=== PATIENT | male | born 1965 | race Caucasian/White ===

== ENCOUNTER 2017-07-18 10:40 | Inpatient (IN) ==
--- NOTE | 2017-07-18 10:28 | Anesthesia Evaluation PreOp ---
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 Any Significant HX Other Medical History: Other (mood) Anesthesia History: No Prior Anesthetic Complications, Past Anesthesia Alcohol Use: none Drug use: none Medications and Allergies Bupropion HCl [Wellbutrin Xl] 300 mg PO DAILY 07/18/17 [History] Lisinopril/Hydrochlorothiazide [Zestoretic 20-25 mg Tablet] 1 tab PO DAILY 07/18 [History] Potassium Chloride [Klor-Con 10] 10 meq PO DAILY 07/18/17 [History] 3 Allergy/AdvReac Type Severity Reaction Status Date / Time No Known Allergies Allergy Verified 07/18/17 11:25 - Meds/Allergy Pre-op Review Medications Reviewed: Yes Allergies Reviewed: Yes Beta Blockers on Current Med List: No Anesthesia Results - Labs Laboratory Tests 07/06/17 07/06/17 09:29 09:29 WBC 9.1 Hgb 14.7 Hct 41.5 Plt Count 267 Sodium 145 Potassium 3.3 L BUN 16 Creatinine 1.11 - Imaging EKG: report reviewed (07/06/2017 SINUS BRADYCARDIA BORDERLINE LEFT AXIS DEVIATION POSSIBLE RIGHT VENTRICULAR CONDUCTION DELAY MINIMAL VOLTAGE CRITERIA FOR LVH, CONSIDER NORMAL VARIANT) Anesthesia Exam O2 Sat Height 1.83 m Height 1.83 m Height 1.83 m Weight 92.533 kg Weight 92.533 kg Weight 92.533 kg O2 Sat by Pulse Oximetry 98 Vital Signs Temp Pulse Resp BP Pulse Ox 97.3 F L 64 18 193/103 98 07/18/17 11:15 07/18/17 11:15 07/18/17 11:15 07/18/17 11:15 07/18/17 11:15 Height: 6' Weight: 204 lbs NPO (# of Hours): 8 Pain Scale: 0 Pain Scale Used: Numeric (1 - 10) - HEENT Pupil (Motor): EOMI Mallampati: II Teeth: Normal Denture Type: Upper: Complete Oral Opening: Greater than 3 - FISHER SWORDFISH LOC: Oriented FISHER SWORDFISH Motor: Normal RUE, Normal LUE, Normal RLE, Normal LLE, Normal Face FISHER SWORDFISH Sensory: Normal: RUE, LUE, RLE, LLE, Face - Cardiac Rhythm: Regular Murmur: None - Pulmonary Breath Sounds: bilateral Clear Respiratory Effort: Symmetrical Anesthesia Assess/Plan ASA Score: 2 Modified [place] Scale for Level of Consciousness: Cooperative, oriented, and tranquil Anesthetic Plan: General Monitoring Plan: Standard Monitors Recovery Plan: PACU
[2017-07-18] MEDS ORDERED: CeFAZolin Pre 2,000 MG/100 ML 2,000 MG/100 ML BAG IVPB ONE (11:09)
[2017-07-18] MEDS ORDERED: Plasma-Lyte A (PH 7.4) 1,000 ML IVC SCH (11:15)
[2017-07-18] MEDS ORDERED: diazePAM 5 MG TABLET PO ONE (11:56)
[2017-07-18] MEDS ORDERED: *HR* FentaNYL (PF) 100 MCG/2 ML VIAL ONE (12:12)
[2017-07-18] MEDS ORDERED: Ondansetron 4 MG/2 ML VIAL ONE (12:12)
[2017-07-18] MEDS ORDERED: *HR* Rocuronium Bromide 50 MG/5 ML VIAL ONE ×2 (12:12→14:46)
[2017-07-18] MEDS ORDERED: *HR* Midazolam HCl 2 MG/2 ML VIAL ONE (12:12)
[2017-07-18] MEDS ORDERED: *HR* Propofol 200 MG/20 ML VIAL IVP ONE (12:12)
[2017-07-18] MEDS ORDERED: Lidocaine -MPF 2% 2 ML VIAL ONE (12:12)
--- NOTE | 2017-07-18 12:45 | History & Physical Report ---
Date of Encounter: 07/18/17 Time of Encounter: 12:44 24 Hour HP Update - Instructions Instructions: If the History and Physical is less than 30 days old and was completed prior to A.M. admission and or procedure and has NOT been updated on calendar day of procedure please complete this update prior to performing procedure. - Update Patient reports changes in Medical Condition: No Changes in examination, assessment, or condition: No Changes in Medication: No Preop tests/diagnostics Reviewed: Yes Surgery Remains Indicated: Yes Consent for Planned Operative Procedure(s) Verified: Yes - Pre-Operative Checklist Preoperative Checklist Indicated: Yes Prophylactic Antibiotic Ordered: Yes Home Medications Include Beta Brian: No Is VTE Prophylaxis Indicated?: Yes
[2017-07-18] MEDS ORDERED: Bupivacaine-MPF 0.25% 10 ML VIAL ONE (13:12)
[2017-07-18] MEDS ORDERED: Ringers Solution, Lactated 1,000 ML IVC SCH (13:50)
[2017-07-18] MEDS ORDERED: *HR* HYDROmorphone (PF) 1 MG/ML SYRINGE IVP PRN ×2 (14:32→18:57)
[2017-07-18] MEDS ORDERED: *HR* Meperidine 25 MG/ML SYRINGE IVP PRN (14:32)
[2017-07-18] MEDS ORDERED: *HR* Labetalol 20 MG/4 ML SYRINGE IVP PRN (14:32)
[2017-07-18] MEDS ORDERED: *HR* Promethazine 25 MG/ML VIAL IVP PRN (14:32)
[2017-07-18] MEDS ORDERED: Lidocaine -MPF 4% 5 ML AMPUL ONE (14:46)
[2017-07-18] MEDS ORDERED: Dexamethasone 4 MG/ML VIAL ONE (14:47)
[2017-07-18] MEDS ORDERED: *HR* HYDROmorphone 2 MG/ML SYRINGE ONE (17:00)
--- NOTE | 2017-07-18 17:32 | Operative Note ---
Date of procedure: 07/18/17 Pre-op diagnosis: Prostate cancer Post-op diagnosis: same Procedure: Robot-assisted radical prostatectomy Implants: 22 Macanese Farley catheter. 19 Macanese Michael drain. Complications: None. Anesthesia: BEN Surgeon: Gordo Howard Estimated blood loss (cc): 150 Specimen: Prostate Condition: stable Disposition: PACU Procedure in Detail: INDICATIONS FOR PROCEDURE: Mr. Tang is a 51 year-old male with history of elevated PSA. He was found on prostate needle biopsy to have Ania 3+3 prostate cancer at the left apex, right apex, and left mid. He is now presenting for robotic assisted prostatectomy. He was informed of the risks of the procedure including but not limited to bleeding, infection, injury to other structures, need for further procedures, lymphocele, urinary incontinence, urine leak, erectile dysfunction, bladder neck contracture, rectal injury, and the risk of anesthesia. He is willing to proceed. PROCEDURE: After informed consent was obtained, the patient was taken to the operating room, placed supine on the table. He was given IV antibiotics for antibiotic coverage. He had SHEYLA's and SCD's placed on the lower extremities for DVT prophylaxis. Induction of general anesthesia was performed. The arms were tucked and he was placed in lithotomy position. He was secured to the OR table with padding. A 16 Macanese Farley catheter was placed. A 10mm incision was made just infraumbilically. The Veress needle was introduced. The water drop test passed. Pneumoperitoneum was initiated with low pressures initially. The abomen was insufflated. I then placed a 12mm camera port through this incision using the visual obturator and the 8 mm robotic camera. Once the trocar was in place, the camera for the robot was placed in the field and remaining trocars were placed. Robotic ports were placed x 2 on the right side. We placed another robotic port to the left of the umbilicus. We also placed a 12mm port in the left lower quadrant. Once all trocars were in place, the robot was docked to the patient and the monopolar scissors were placed on the right robotic arm. The bipolar [place] was in the left robotic arm and the Prograsp in the 4th arm. We initially retracted the bowel with the 4th arm. The medial umbilical ligaments were cauterized and the bladder was taken down off the anterior abdominal wall using electrocautery. The bladder was then grasped with a 4th arm and retracted cephalad. We then swept the periprostatic fat off the prostate as well as the pelvic sidewall. We then incised the endopelvic fascia on both sides and carried the incision up to the prostatic apex, sweeping the levator fibers off of the prostate. We then turned our attention to the bladder neck which was incised with the monopolar cautery until the catheter was visualized at the bladder neck. The balloon of the catheter was deflated. It was brought out of the bladder and retracted anteriorly using the fourth arm. The posterior bladder neck was then opened using the cautery until the space between the prostate and the bladder neck was visualized. The posterior aspect of the prostate was dissected down carefully using electrocautery. The posterior bladder neck to get thinned out and required reconstruction prior to the anastomosis. The vas deferens and seminal vesicals were encountered. The vas deferens were cauterize and divided. We pulled the seminal vesicles up into the field to help retract the prostate in cephalad direction. Denonvillier's fascia was dissected off the prostate posteriorly. We then began releasing the lateral prostatic fascia, first on the left side. The neurovascular bundles with minimal use of cautery to do a good nerve sparing approach. The pedicles were carefully ligated using hemo-lock clips. Attention was then turned to the right side. The right neurovascular bundle was released sharply. The pedicles were taken down using hemo-lock clips. Once both neurovascular bundles were released, the posterior attachments were released sharply between the prostate and the rectum. We then used the 4th arm to place the prostate on stretch in cephalad direction. The puboprostatic ligaments were cut sharply. I then divided the dorsal venous complex sharply. The urethra was eventually encountered. The dorsal vein was oversewed using an 0 Vicryl suture in a running fashion. With cold scissors I cut across the urethra until the catheter was visualized. The catheter was removed and the posterior urethra was transected. The prostate was then placed in an Endo Catch bag. The bladder neck was then reconstructed in a tennis racquet fashion using a 3-0 Vicryl in a running fashion. The bladder neck was adequately patent. A stitch was placed posterior to the bladder and posterior to the urethra using a 0 Vicryl. This took some tension off the bladder neck in order to achieve a good anastomosis. The urethral vesicle anastomosis was then performed with a 3-0 V-Cody suture in running fashion starting at 6 o'clock position. With two sutures tied together we then ran the right side up about long-term. The left side was then run around until the bladder was reanastamosed to the urethra. The final 20 Macanese catheter was placed into the bladder and balloon filled with 15 mL of sterile water. The bladder was irrigated. No leak was identified. A 19 Macanese Michael drain was placed through the trocar down into the pelvis. The trocar was removed and drain sewn in place with a suture. The robot was then undocked from the patient. I was able to place my finger from the camera wound across the abdomen to grasp the Endocatch bag and bring the suture to the umbilical wound. After extending the incision slightly with the electrocautery the EndoCatch bag was then removed from the camera port. The abdominal fascia was then closed in running fashion with 0 Vicryl suture. All incisions were instilled with 0.25 % Marcaine. The remaining trocars were removed under direct vision and all incisions were then closed with 4-0 Monocryl in subcuticular fashion. The patient was then awakened from general anesthesia and brought to the recovery room in good condition. All sponge, needle, and instrument counts were correct.
--- NOTE | 2017-07-18 18:30 | Anesthesia Evaluation Post Op ---
Date of Encounter: 07/18/17 Time of Encounter: 18:29 - Vital Signs Vital Signs: Vital Signs/O2 Sat, Most Current Temp Pulse Resp BP Pulse Ox 98.4 F 80 16 150/97 94 07/18/17 18:00 07/18/17 18:20 07/18/17 18:20 07/18/17 18:20 07/18/17 18:20 - Lungs Lungs: Clear Ascult./Percussion - Airway Airway: Non-obstructed - Cardiovascular Regular Rate - Mental Status Mental Status: Asleep with brisk response to light stimulation - Pain Pain Scale: 0 Pain Scale used: Numeric (1 - 10) - Nausea Vomiting Nausea Vomiting: Not Present - Hydration Hydration: NPO, Farley catheter - Discharge PostOp Status: Transfer Patient to floor
[2017-07-18] MEDS ORDERED: Naloxone 0.4 MG/ML INJ IVP PRN (18:57)
[2017-07-18] MEDS ORDERED: *HR* OxyCODONE Immed Rel 5 MG TABLET PO PRN (18:57)
[2017-07-18 19:41] LABS: BUN/Creatinine Ratio 14 (6-26); Blood Urea Nitrogen 15 mg/dL (8-26); Calcium 8.6 mg/dL (8.6-10.8); Carbon Dioxide 24 mEq/L (19-29); Chloride 104 mEq/L (98-109); Glucose 211 mg/dL (70-99); Osmolality,Calculated 299 (280-300); Sodium 141 mEq/L (136-145); eGFR For African Americans > 60 (> 60); eGFR For Non-African Americans > 60 (> 60)
[2017-07-18] MEDS: 0.9 % Sodium Chloride 1,000 ML IVC SCH (19:47)
[2017-07-18] MEDS: *HR* Heparin 5,000 UNIT/ML VIAL SQ SCH (19:48)
[2017-07-18] MEDS: Ketorolac 30 MG/ML VIAL IVP SCH ×2 (19:49→23:31)
[2017-07-18] MEDS: Ondansetron 4 MG/2 ML VIAL IVP PRN (23:30)
[2017-07-19] MEDS: ceFAZolin 2,000 MG in D5% in Water 100 ML IVPB SCH ×3 (00:05→17:33)
[2017-07-19 04:49] LABS: Basophils % 0.1 %; Hematocrit 33.7 % (37.5-50.1); Hemoglobin 11.5 g/dL (12.9-16.9); Immature Granulocytes % 0.5 % (0-4); Lymphocytes # 1.3 K/mcL (0.6-4.6); Lymphocytes % 7.4 %; Mean Corpuscular HGB Conc 34.1 g/dL (31.6-35.5); Mean Corpuscular Hemoglobin 28.4 pg (28.0-33.3); Mean Corpuscular Volume 83.2 fL (83.0-100.0); Mean Platelet Volume 10.2 fL (9.4-12.4); Monocytes # 1.4 K/mcL (0.0-1.3); Monocytes % 8.1 %; Neutrophils # 14.1 K/mcL (1.6-8.9); Platelet Count 336 K/mcL (140-400); Red Blood Count 4.05 M/mcL (4.19-5.50); Red Cell Distribution Width 13.5 % (11.5-14.5); Segmented Neutrophils % 83.9 %
[2017-07-19 04:57] LABS: Calcium 8.1 mg/dL (8.6-10.8); Potassium 3.8 mEq/L (3.5-4.5)
[2017-07-19] MEDS: 0.9 % Sodium Chloride 1,000 ML IVC SCH ×2 (05:01→17:33)
[2017-07-19] MEDS: Ketorolac 30 MG/ML VIAL IVP SCH (05:27)
[2017-07-19] MEDS: *HR* Heparin 5,000 UNIT/ML VIAL SQ SCH ×2 (05:27→17:39)
--- NOTE | 2017-07-19 07:15 | Urology Progress Note ---
Date of Encounter: 07/19/17 Time of Encounter: 07:13 - Assessment and Plan (1) Prostate cancer Current Visit: Yes Status: Acute Assessment and plan: Status post RARP. POD #1. 1. He got vasovagal this morning, likely due to decreased fluid status. NIELS output is reasonable today. Will give 1 liter bolus. 2. Creatinine nicolás slightly. Will hold ketorolac and lisinopril/hctz. 3. Continue drain. 4. Clear liquid diet. 5. I will keep him in the hospital overnight to monitor Creatinine and urine output. Will change to in patient status. Progress Note Narrative: His pain was well controlled overnight. This morning he desired to get into a chair. I assisted him into the chair and then he became vasovagal. He had a syncopal event for approximately 5 seconds. He then regained consciousness while in a chair. RN came to assist. He reports that he felt better. Urine output was low overnight. NIELS output was bloody. He is tolerating sips of clears. Objective Initial Vital Signs Temp Pulse Resp BP Pulse Ox 97.3 F L 64 18 193/103 98 07/18/17 11:15 07/18/17 11:15 07/18/17 11:15 07/18/17 11:15 07/18/17 11:15 - General physical appearance Present: well developed, well nourished, no distress - Respiratory Present: normal respiratory effort - Abdomen Present: soft (appropriately tender, not distended. Incisions are clean, dry, intact. ) - Genitourinary Urine Appearance: Present: Hematuria (Scant, bloody, dark colored.) - Labs 07/19/17 04:04 07/19/17 04:04 Diabetes panel 07/18/17 07/19/17 Range/Units 19:16 04:04 Sodium 141 142 (136-145) mEq/L Potassium 3.0 L 3.8 (3.5-4.5) mEq/L Chloride 104 103 (98-109) mEq/L Carbon Dioxide 24 22 (19-29) mEq/L BUN 15 26 D (8-26) mg/dL Creatinine 1.10 1.86 H D (0.72-1.25) mg/dL Glucose 211 H 200 H (70-99) mg/dL Calcium 8.6 8.1 L (8.6-10.8) mg/dL Calcium panel 07/18/17 07/19/17 Range/Units 19:16 04:04 Calcium 8.6 8.1 L (8.6-10.8) mg/dL Pituitary panel 07/18/17 07/19/17 Range/Units 19:16 04:04 Sodium 141 142 (136-145) mEq/L Potassium 3.0 L 3.8 (3.5-4.5) mEq/L Chloride 104 103 (98-109) mEq/L Carbon Dioxide 24 22 (19-29) mEq/L BUN 15 26 D (8-26) mg/dL Creatinine 1.10 1.86 H D (0.72-1.25) mg/dL Glucose 211 H 200 H (70-99) mg/dL Calcium 8.6 8.1 L (8.6-10.8) mg/dL Adrenal panel 07/18/17 07/19/17 Range/Units 19:16 04:04 Sodium 141 142 (136-145) mEq/L Potassium 3.0 L 3.8 (3.5-4.5) mEq/L Chloride 104 103 (98-109) mEq/L Carbon Dioxide 24 22 (19-29) mEq/L BUN 15 26 D (8-26) mg/dL Creatinine 1.10 1.86 H D (0.72-1.25) mg/dL Glucose 211 H 200 H (70-99) mg/dL Calcium 8.6 8.1 L (8.6-10.8) mg/dL - VTE Documentation of Mechanical Device: Intermittent pneumatic compression device Consult Discharge Plan - Plan Referrals: Annamaria Williamson CNP [Primary Care Provider] - Gordo Howard MD [Partnered Physician] -
[2017-07-19] MEDS: BuPROPion XL (24 HR) 150 MG TABLET PO SCH (08:09)
[2017-07-19] MEDS: Acetaminophen 325 MG TABLET PO PRN ×2 (11:09→23:13)
[2017-07-19] MEDS ORDERED: 0.9 % Sodium Chloride 500 ML IVC ONE (12:17)
[2017-07-19 14:13] LABS: Hematocrit 27.6 % (37.5-50.1)
[2017-07-19 14:16] LABS: Hemoglobin 9.3 g/dL (12.9-16.9)
[2017-07-19] MEDS ORDERED: 0.9 % Sodium Chloride 500 ML IVC SCH (15:15)
[2017-07-20] MEDS: 0.9 % Sodium Chloride 1,000 ML IVC SCH (02:37)
[2017-07-20] MEDS: Ondansetron 4 MG/2 ML VIAL IVP PRN (02:59)
[2017-07-20 05:22] LABS: Basophils % 0.2 %; Eosinophils % 0.2 %; Hematocrit 22.8 % (37.5-50.1); Immature Granulocytes % 0.4 % (0-4); Lymphocytes % 17.8 %; Mean Corpuscular HGB Conc 35.1 g/dL (31.6-35.5); Mean Corpuscular Hemoglobin 28.3 pg (28.0-33.3); Mean Corpuscular Volume 80.6 fL (83.0-100.0); Mean Platelet Volume 10.1 fL (9.4-12.4); Monocytes % 8.4 %; Neutrophils # 8.3 K/mcL (1.6-8.9); Platelet Count 213 K/mcL (140-400); Red Blood Count 2.83 M/mcL (4.19-5.50); Red Cell Distribution Width 13.4 % (11.5-14.5)
[2017-07-20 05:41] LABS: BUN/Creatinine Ratio 26 (6-26); Blood Urea Nitrogen 34 mg/dL (8-26); Calcium 7.5 mg/dL (8.6-10.8); Carbon Dioxide 28 mEq/L (19-29); Chloride 108 mEq/L (98-109); Glucose 96 mg/dL (70-99); Osmolality,Calculated 299 (280-300); Potassium 3.1 mEq/L (3.5-4.5); Sodium 141 mEq/L (136-145); eGFR For African Americans > 60 (> 60); eGFR For Non-African Americans 58 (> 60)
--- NOTE | 2017-07-20 06:16 | Urology Progress Note ---
Date of Encounter: 07/20/17 Time of Encounter: 06:13 - Assessment and Plan (1) Prostate cancer Current Visit: Yes Status: Acute Assessment and plan: POD #2 s/p RARP. He had some bleeding after surgery and some hypotension. This was improved with IVF boluses. 1. ADAT. 2. Ambulate 3x/day. 3. KCl x 40mg. 4. Decrease IVF. 5. Check H&H today. 6. If doing well, consider d/c home later today. Progress Note Narrative: POD #2 s/p RARP. He had some hypotension yesterday and received 2 liters of NS boluses. Blood pressure improved today. He has been ambulating. Hemoglobin went from 9.3->8. HR and BP are stable. He feels better today. He notes some gas pain, but abdomen feels soft. Objective Initial Vital Signs Temp Pulse Resp BP Pulse Ox 97.3 F L 64 18 193/103 98 07/18/17 11:15 07/18/17 11:15 07/18/17 11:15 07/18/17 11:15 07/18/17 11:15 - General physical appearance Present: well developed, well nourished, no distress - Respiratory Present: normal respiratory effort - Abdomen Present: soft (appropriately tender, nd, incisons are c,d,i. NIELS with scant fluid.) - Genitourinary Present: normal penis with no external lesions Urine Appearance: Present: Clear (Clear to light pink.) - Labs 07/20/17 04:20 07/20/17 04:20 Diabetes panel 07/20/17 Range/Units 04:20 Sodium 141 (136-145) mEq/L Potassium 3.1 L (3.5-4.5) mEq/L Chloride 108 (98-109) mEq/L Carbon Dioxide 28 (19-29) mEq/L BUN 34 H (8-26) mg/dL Creatinine 1.30 H (0.72-1.25) mg/dL Glucose 96 (70-99) mg/dL Calcium 7.5 L (8.6-10.8) mg/dL Calcium panel 07/20/17 Range/Units 04:20 Calcium 7.5 L (8.6-10.8) mg/dL Pituitary panel 07/20/17 Range/Units 04:20 Sodium 141 (136-145) mEq/L Potassium 3.1 L (3.5-4.5) mEq/L Chloride 108 (98-109) mEq/L Carbon Dioxide 28 (19-29) mEq/L BUN 34 H (8-26) mg/dL Creatinine 1.30 H (0.72-1.25) mg/dL Glucose 96 (70-99) mg/dL Calcium 7.5 L (8.6-10.8) mg/dL Adrenal panel 07/20/17 Range/Units 04:20 Sodium 141 (136-145) mEq/L Potassium 3.1 L (3.5-4.5) mEq/L Chloride 108 (98-109) mEq/L Carbon Dioxide 28 (19-29) mEq/L BUN 34 H (8-26) mg/dL Creatinine 1.30 H (0.72-1.25) mg/dL Glucose 96 (70-99) mg/dL Calcium 7.5 L (8.6-10.8) mg/dL - VTE Documentation of Mechanical Device: Intermittent pneumatic compression device Consult Discharge Plan - Plan Referrals: Annamaria Williamson CNP [Primary Care Provider] - Gordo Howard MD [Partnered Physician] -
[2017-07-20] MEDS ORDERED: 0.45 % Sodium Chloride w/KCl 20 MEQ/1,000 ML MLS IVC SCH (06:30)
[2017-07-20] MEDS: *HR* Heparin 5,000 UNIT/ML VIAL SQ SCH (07:04)
[2017-07-20] MEDS: Acetaminophen 325 MG TABLET PO PRN (11:04)
[2017-07-20] MEDS: BuPROPion XL (24 HR) 150 MG TABLET PO SCH (11:04)
[2017-07-20] MEDS: Potassium Chloride 40 MEQ, Lidocaine 1% 2 ML in D5% in Water 500 ML IVPB ONE ×2 (12:12→13:26)
[2017-07-20] MEDS ORDERED: Potassium Chloride 40 MEQ, Lidocaine 1% 2 ML in D5% in Water 500 ML IVPB ONE (12:43)
[2017-07-20 13:56] LABS: Hematocrit 22.3 % (37.5-50.1)
[2017-07-21] MEDS: Acetaminophen 325 MG TABLET PO PRN (03:56)
[2017-07-21 05:29] LABS: Hematocrit 23.6 % (37.5-50.1); Hemoglobin 8.2 g/dL (12.9-16.9)
[2017-07-21 05:43] LABS: BUN/Creatinine Ratio 15 (6-26); Calcium 8.4 mg/dL (8.6-10.8); Carbon Dioxide 28 mEq/L (19-29); Chloride 106 mEq/L (98-109); Glucose 93 mg/dL (70-99); Osmolality,Calculated 294 (280-300); Potassium 3.4 mEq/L (3.5-4.5); Sodium 142 mEq/L (136-145); eGFR For African Americans > 60 (> 60); eGFR For Non-African Americans > 60 (> 60)
[2017-07-21 05:46] LABS: Blood Urea Nitrogen 14 mg/dL (8-26)
[2017-07-21 07:08] VITALS: BP 156/84
--- NOTE | 2017-07-21 07:33 | Urology Progress Note ---
Date of Encounter: 07/21/17 Time of Encounter: 07:30 - Assessment and Plan (1) Prostate cancer Current Visit: Yes Status: Acute Assessment and plan: Postop day #3 status post robotic-assisted radical prostatectomy. He is doing well. 1. Anticipate discharge home later today. 2. I will give him another 40 mEq of potassium chloride by mouth for his low potassium. 3. He can follow up in 1 week with a cystogram. If there is no evidence of urine leak, we can remove the catheter at that time. (2) Acute renal insufficiency Current Visit: Yes Status: Acute Assessment and plan: He had acute renal insufficiency after his surgery. With hydration his creatinine improved. He is back to baseline today. (3) Post-operative hemorrhage Current Visit: Yes Status: Acute Assessment and plan: He had a postoperative bleed. His blood counts have been stable from yesterday to today. No indication for transfusion at this time. His heart rate and blood pressure are stable. Qualifiers: Qualified Code(s): N99.820 - Postprocedural hemorrhage of a genitourinary system organ or structure following a genitourinary system procedure Progress Note Narrative: Postoperative day #3 status post robotic-assisted radical prostatectomy. He had postoperative hemorrhage and acute renal insufficiency after surgery. His blood counts remained stable this morning and his creatinine is improving. He feels well. His drain was removed yesterday. Urine has been clear to light pink. He is tolerating diet. He is passing gas. Objective Initial Vital Signs Temp Pulse Resp BP Pulse Ox 97.3 F L 64 18 193/103 98 07/18/17 11:15 07/18/17 11:15 07/18/17 11:15 07/18/17 11:15 07/18/17 11:15 - General physical appearance Present: well developed, well nourished, no distress - Respiratory Present: normal respiratory effort - Abdomen Present: soft (Appropriately tender, incisions are clean, dry, and intact.) - Genitourinary Present: normal penis with no external lesions Urine Appearance: Present: Hematuria (Farley catheter in place with light pink urine.) - Labs 07/21/17 04:57 07/21/17 04:57 Diabetes panel 07/21/17 Range/Units 04:57 Sodium 142 (136-145) mEq/L Potassium 3.4 L (3.5-4.5) mEq/L Chloride 106 (98-109) mEq/L Carbon Dioxide 28 (19-29) mEq/L BUN 14 D (8-26) mg/dL Creatinine 0.93 (0.72-1.25) mg/dL Glucose 93 (70-99) mg/dL Calcium 8.4 L (8.6-10.8) mg/dL Calcium panel 07/21/17 Range/Units 04:57 Calcium 8.4 L (8.6-10.8) mg/dL Pituitary panel 07/21/17 Range/Units 04:57 Sodium 142 (136-145) mEq/L Potassium 3.4 L (3.5-4.5) mEq/L Chloride 106 (98-109) mEq/L Carbon Dioxide 28 (19-29) mEq/L BUN 14 D (8-26) mg/dL Creatinine 0.93 (0.72-1.25) mg/dL Glucose 93 (70-99) mg/dL Calcium 8.4 L (8.6-10.8) mg/dL Adrenal panel 07/21/17 Range/Units 04:57 Sodium 142 (136-145) mEq/L Potassium 3.4 L (3.5-4.5) mEq/L Chloride 106 (98-109) mEq/L Carbon Dioxide 28 (19-29) mEq/L BUN 14 D (8-26) mg/dL Creatinine 0.93 (0.72-1.25) mg/dL Glucose 93 (70-99) mg/dL Calcium 8.4 L (8.6-10.8) mg/dL - VTE Documentation of Mechanical Device: Intermittent pneumatic compression device Consult Discharge Plan - Plan Referrals: Annamaria Williamson CNP [Primary Care Provider] - Gordo Howard MD [Partnered Physician] -
--- NOTE | 2017-07-21 07:37 | Discharge Summary ---
Date of Encounter: 07/21/17 Time of Encounter: 07:34 - Discharge Diagnosis (1) Prostate cancer Priority: Primary Status: Acute (2) Acute renal insufficiency Priority: Secondary Status: Acute (3) Post-operative hemorrhage Priority: Secondary Status: Acute Qualifiers: Qualified Code(s): N99.820 - Postprocedural hemorrhage of a genitourinary system organ or structure following a genitourinary system procedure - Discharge Medications Prescriptions: Docusate [Colace] 100 mg PO BID #60 capsule Oxycodone HCl/Acetaminophen [Percocet 5-325 mg Tablet] 1 each PO Q6H PRN #15 tablet PRN Reason: Pain Home Medications: Bupropion HCl [Wellbutrin Xl] 300 mg PO DAILY 07/18/17 [History] Lisinopril/Hydrochlorothiazide [Zestoretic 20-25 mg Tablet] 1 tab PO DAILY 07/18 [History] Potassium Chloride [Klor-Con 10] 10 meq PO DAILY 07/18/17 [History] Docusate [Colace] 100 mg PO BID #60 capsule 07/21/17 [Rx] Oxycodone HCl/Acetaminophen [Percocet 5-325 mg Tablet] 1 each PO Q6H PRN #15 tablet 07/21/17 [Rx] Allergies/Adverse Reactions: 3 Allergy/AdvReac Type Severity Reaction Status Date / Time No Known Allergies Allergy Verified 07/18/17 11:25 Labs on day of discharge: Labs from last 24 hours 07/21/17 07/21/17 07/20/17 04:57 04:57 13:10 Hgb 8.2 L 8.0 L Hct 23.6 L 22.3 L Sodium 142 Potassium 3.4 L Chloride 106 Carbon Dioxide 28 BUN 14 D Creatinine 0.93 Est GFR ( Amer) > 60 Est GFR (Non-Af Amer) > 60 BUN/Creatinine Ratio 15 Glucose 93 Calculated Osmolality 294 Calcium 8.4 L Date of admission: 07/19/17 07:22 Primary care physician: Annamaria Williamson CNP Consults: 07/19/17 07:20 Consult to Physical Therapy [CONS] Routine Comment: Evaluate, develop and implement POC Reason for Consult: Assist with ambulation Discharging clinician: Gordo Howard Anticipated date of discharge: 07/21/17 - Patient Status Disposition: Home, Self-Care Condition: Good Functional capacity at discharge: independent ambulation Overall status at discharge: patient is progressing back to baseline - Discharge Instructions Follow Up With: Gordo Howard MD [Partnered Physician] - (1 week with cystogram and possible voiding trial.) Additional Instructions: Please provide catheter care instructions - leg bag, night bag, leg strap and how to change the bags appropriately. 1. No heavy lifting greater than 20 pounds x2 weeks. 2. No tub baths x2 weeks. 3. May shower. 4. He should follow up in 1 week for a cystogram and postoperative check. 5. He should return for any fevers, chills, nausea, vomiting, worsening hematuria, or significant swelling/ecchymosis. 6. No NSAIDs x 2 weeks. 7. Acetaminophen is okay. - Diet and Activity Activity: increase activity as tolerated Diet: advance to your usual diet - Hospital Course Hospital course: Mr. Tang is a 51 year old male with a history of prostate cancer. On June he underwent a robotic-assisted radical prostatectomy. On postoperative day #1 he had a syncopal event. His blood pressure had dropped and his renal function had worsened. He was resuscitated with 2 L of normal saline. His blood pressure improved. His hemoglobin dropped to 8. His blood pressure stabilized. He didn't require a blood transfusion. His renal function improved. Drain did not show a large volume output. It was removed on postoperative day # 2. By postoperative day #3, he was tolerating diet. His blood counts were stable. His vital signs are stable. He was making good urine. He was then discharged home in good condition. - Time Spent with Patient Total time spent providing and/or coordinating discharge services: Less than 30 minutes Exam Initial Vital Signs Temp Pulse Resp BP Pulse Ox 97.3 F L 64 18 193/103 98 07/18/17 11:15 07/18/17 11:15 07/18/17 11:15 07/18/17 11:15 07/18/17 11:15 - General physical appearance Present: well developed, well nourished, no distress - Eyes Absent: icteric - ENT Present: normal nares - Neck Present: trachea midline - Respiratory Present: normal respiratory effort - Cardiovascular Cardiovascular exam IM: RRR - Abdomen Abdomen: Present: soft - VTE Documentation of Mechanical Device: Intermittent pneumatic compression device
[2017-07-21] MEDS: BuPROPion XL (24 HR) 150 MG TABLET PO SCH (09:37)
== END 2017-07-21 12:20 | disposition home or self-care (01) | DRG 707 ==
LOC: SAMDAY 10:40 → 3NENU 18:41 → 3ANU 18:57
PROVIDERS: ADMIT Urology; ATTEND Urology